=== PATIENT | female | born 1955 | race African-American/Black ===

== ENCOUNTER 2020-01-12 10:12 | Emergency (ER) | payer MEDICAID, OTHER ==
[~2020-01-12] VITALS: Ht 170.2 cm; Wt 73.0 kg
[2020-01-12] MEDS ORDERED: FLUORESCEIN SODIUM 1MG/STRIP BOTHEYE ONE (11:00)
[2020-01-12 12:03] VITALS: BP 165/77
== END 2020-01-12 12:06 | disposition home or self-care (01) ==
LOC: ER 10:12
DX: S09.8XXA Other specified injuries of head, initial encounter (principal); W18.39XA Other fall on same level, initial encounter; Y93.89 Activity, other specified; Y92.89 Other specified places as the place of occurrence of the external cause; Y99.8 Other external cause status
CPT/HCPCS: 70486; 99285

== ENCOUNTER 2024-01-18 08:33 | Emergency (ER) | payer MEDICAID, MEDICARE, OTHER ==
[~2024-01-18] VITALS: Ht 165.1 cm; Wt 56.0 kg
[2024-01-18 08:39] VITALS: O2SAT 99
[2024-01-18] MEDS: FLUORESCEIN SODIUM 1MG/STRIP RIGHTEYE ONE (10:06)
[2024-01-18] MEDS: TETRACAINE 0.5% OPHTH DROPS 4ML RIGHTEYE ONE (10:06)
[2024-01-18] MEDS ORDERED: OCUFLX RIGHTEYE (10:54)
[2024-01-18 11:17] VITALS: BP 139/57; PULSE 73; RESP 18; TEMP 36.78072; O2SAT 100
== END 2024-01-18 11:23 | disposition home or self-care (01) ==
LOC: ER 08:33
DX: S00.211A Abrasion of right eyelid and periocular area, initial encounter (principal); Z91.040 Latex allergy status; X58.XXXA Exposure to other specified factors, initial encounter; Y93.E1 Activity, personal bathing and showering; Y92.89 Other specified places as the place of occurrence of the external cause; Y99.8 Other external cause status
CPT/HCPCS: 99283